=== PATIENT | male | born 1945 | race Caucasian/White ===

== ENCOUNTER → 2018-07-09 08:40 | Outpatient (CLI) | payer OTHER, SELFPAY ==
[2018-07-09 10:04] LABS: BUN Creatinine Ratio 16.4 (6-22); Blood Urea Nitrogen 18 mg/dL (9-20); Calcium 9.1 mg/dL (8.4-10.2); Carbon Dioxide 26 mmol/L (22-32); Chloride 102 mmol/L (98-107); Cholesterol 180 mg/dL (140-199); Estimated Glomerular Filt Rate > 60.0 mL/min (>60); Glucose 101 mg/dL (80-110); HDL Cholesterol 67 mg/dL (40-60); HEMOLYSIS < 15 (0-50); LDL Cholesterol Calculated 90 mg/dL (<100); Potassium 4.3 mmol/L (3.4-5.1); Sodium 141 mmol/L (137-145); Triglycerides 115 mg/dL (35-150)
[2018-07-09 10:18] LABS: Vitamin D 25 Hydroxy (D3) 112 ng/mL (30.0-100.0)
[2018-07-09 10:41] LABS: Prostate Specific Antigen < 0.064 ng/mL (0.10-4.00)
== END ==
PROVIDERS: PCP Family Medicine; Visit Provider Student in an Organized Health Care Education/Training Program
DX: E78.5 Hyperlipidemia, unspecified (principal); E55.9 Vitamin D deficiency, unspecified; Z85.46 Personal history of malignant neoplasm of prostate; I10 Essential (primary) hypertension
CPT/HCPCS: 36415; 80048; 80061; 82306; 84153

== ENCOUNTER → 2018-07-27 16:12 | Outpatient (CLI) | payer OTHER, SELFPAY ==
--- NOTE | 2018-07-27 16:14 | DI.US.S_ITS ---
PROCEDURE: US ABD AORTA ANEURYSM SCREEN INDICATIONS: AAA screen in male former smoker TECHNIQUE: Real time scanning was performed of the aorta and iliac arteries, with image documentation. COMPARISON: None. FINDINGS: Aorta: Proximal aortic diameter measures 1.9 cm. Mid-aorta measures 1.5 cm. Distal aortic diameter is 1.4 cm. Iliac arteries: Right common iliac artery measures 1.1 cm. Left common iliac artery measures 1.2 cm. IMPRESSION: No evidence of abdominal aortic aneurysm. Dictated by: Hayden Baez M.D. on 07/27/2018 at 17:04 Approved by: Hayden Baez M.D. on 07/27/2018 at 17:04
== END ==
PROVIDERS: PCP Student in an Organized Health Care Education/Training Program; Visit Provider Student in an Organized Health Care Education/Training Program
DX: Z13.6 Encounter for screening for cardiovascular disorders (principal); Z87.891 Personal history of nicotine dependence
CPT/HCPCS: 76706

== ENCOUNTER 2019-02-19 08:39 | Day surgery (SDC) | payer OTHER, SELFPAY ==
[2019-02-19] VITALS (7 sets, daily range): BP systolic 112–134; BP diastolic 61–85; PULSE 61–71; RESP 14–16; TEMP 36.3–36.4; O2SAT 94–96; BMI 24.4
--- NOTE | 2019-02-19 | PATH_ITS ---
[facility] Accession Number: [id number] . 01 Material submitted: . colon - COLON POLYP 60 CM . 02 Diagnosis: Colon, Polyp at 60 cm, Biopsy: Tubular adenoma. MRV/02/20/2019 . 02 Electronically signed: . Miladys Berumen MD, Pathologist NPI- [id number] . 01 Gross description: . COLON POLYP 60 CM: Received in formalin is 1 fragment(s) of murri[place], soft tissue measuring 0.3 x 0.3 x 0.3 cm which is entirely submitted and submitted entirely in 1 cassette(s) /DMC /DMC . 02 Pathologist provided ICD-10: D12.6 . 02 CPT . 584038 Performed at: 01 [facility] Located within [facility] [address] [id number] MD Segundo Higuera MD Phone: [phone] Performed at: 02 [facility] [place] [address] [place], [place] [id number] MD Miladys Berumen MD Phone: [phone]
[2019-02-19] MEDS: SODIUM CHLORIDE 0.9% 1,000 ML 200 ML IV (09:26)
--- NOTE | 2019-02-19 10:20 | PM.HP.1 ---
History of Present Illness Date Patient Seen: 02/19/19 Time Patient Seen: 10:20 Chief complaint: [id number] Narrative: The patient is a gentleman here for screening colonoscopy. No prior history of colon cancer. He has a history of colon polyps. 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 Grandfather No problems noted. Grandmother No problems noted. Mother Dementia Grandfather No problems noted. Grandmother No problems noted. Sister No problems noted. Social History household members: spouse Smoking Status: Former smoker Family & Social History Family History Father Heart failure Brother No problems noted. Grandfather No problems noted. Grandmother No problems noted. Mother Dementia Grandfather No problems noted. Grandmother No problems noted. Sister No problems noted. Social History: household members spouse Tobacco & Substance use: Smoking Status Former smoker Meds Home Medications Medication Instructions Recorded Confirmed Type COENZYME Q10/VITAMIN E (CO-Q-10 100 mg PO BEDTIME #0 sgl 05/02/13 02/19/19 History 200mg) VITAMIN D (Vitamin D3) 2,000 units PO SEEINSTR #0 07/12/17 02/19/19 History lovastatin 20 mg tablet 20 mg PO HS #90 tab 06/18/18 02/19/19 Rx sildenafil 50 mg tablet 50 mg PO ONCE #10 tab 07/03/18 02/19/19 Rx lisinopril 20 1 tab PO QAM #90 tab 09/10/18 02/19/19 Rx mg-hydrochlorothiazide 12.5 mg tablet Allergies Allergy/AdvReac Type Severity Reaction Status Date / Time No Known Drug Allergies Allergy Verified 02/19/19 09:10 Review of Systems Review of Systems All systems reviewed & are unremarkable except as noted in HPI and below Exam Vital Signs (past 8 hours): - 02/19/19 09:26 Temperature 97.5 F L Pulse Rate 71 Respiratory Rate 16 Blood Pressure 134/85 Pulse Oximetry 96 Oxygen Delivery Method Room Air Narrative Exam Narrative: Pleasant cooperative patient no apparent distress. Left eye the lower lids tags and there is inflammation and edema of the cornea inferiorly. This is chronic due to a injury. Lungs are clear to auscultation. No rales or rhonchi. Heart regular rate and rhythm no murmur gallop. Abdomen is soft nontender without mass. No obvious hernias. Patient is alert and oriented x3. Assessment & Plan Assessment & Plan narrative: The patient for a screening colonoscopy. I have discussed the procedure with them. Risks of bleeding, perforation which would necessitate major operation, failure to find remove all lesions, the potential tattoo were all discussed. All questions were answered. They wished to proceed.
--- NOTE | 2019-02-19 10:22 | PM.PREOP ---
Pre-operative Note Interval Note History & Physical reviewed/Exam performed by Physician: Yes Changes to H&P: No ASA Class (for procedural sedation): II
[2019-02-19] MEDS: fentaNYL 250 MCG/5 ML INJ IV (10:29)
[2019-02-19] MEDS: MIDAZOLAM 5 MG/5 ML VIAL IV (10:30)
[2019-02-19] MEDS: GLUCAGON,HUMAN RECOMBINANT 1 MG/ML VIAL IV (10:41)
[2019-02-19] MEDS: LACTATED RINGERS 1,000 ML 150 ML IV (10:43)
--- NOTE | 2019-02-19 10:45 | SUR.OPER ---
PATIENT TOLERATED WELL. GLUCAGON GIVEN FOR COLON SPASMS, VITAL SIGNS STABLE ,SEE STRIPS, SHORT PERIOD OF EXTERNAL ABDOMINAL PRESSURE USED, PATIENT REACTIVE TO ALL COMMANDS
--- NOTE | 2019-02-19 11:00 | PM.OP.ENDO ---
Operative Date/Time/Diagnoses Date of procedure: 02/19/19 Time of procedure: 11:00 Pre-op diagnosis: History of polyps. Last exam 5 years ago. Here for screening exam. Post-op diagnosis: same (One polyp at 60 cm. Extensive sigmoid diverticulosis. Scarring on small internal hemorrhoids.) Procedure & Clinicians Study performed: Colonoscopy with cold biopsy Same procedure as scheduled: Yes Indications: Screening. History of polyps. Surgeon: Christopher Peterson Procedure Notes SCOAP/Timeout: Performed Procedure in detail: The patient was placed in the left lateral decubitus position and underwent IV sedation directed by the surgeon consisting of fentanyl and Versed. Digital exam was remarkable for surgically absent prostate. The scope was inserted and advanced through the rectum into the sigmoid, descending, transverse, and ascending colon. The cecum was reached by applying pressure. On the way in patient was noted to have extensive sigmoid diverticulosis.. The cecum was reached identified by the ileocecal valve and the appendiceal opening. The scope was gradually brought out. One Polyp was found at 60 cm from the anal verge. It was biopsied and appeared to be completely removed. The scope ultimately was retroflexed in the rectum. The appearance was significant for scarring I what appeared to be small internal hemorrhoids.. The scope was removed and the patient tolerated the procedure well. Prep was good. Scope withdrawal time: 9min(excluding biopsy time) Sedation minutes: 24 Findings: diverticulosis (Sigmoid) and polyp (At 60 cm) Specimen(s): other (Polyp) Complications: none Recommendations: Colonscopy in 5 years Follow up: as needed Disposition: PACU
== END 2019-02-19 11:45 | disposition home or self-care (01) ==
LOC: ENDO 08:40
PROVIDERS: PCP Student in an Organized Health Care Education/Training Program; Visit Provider Specialist
PROC: 0DJD8ZZ Inspection of Lower Intestinal Tract, Via Natural or Artificial Opening Endoscopic (ICD-10-PCS; CPT 45378; principal; 2019-02-19 09:45)
DX: Z86.010 Personal history of colon polyps (principal); K57.30 Diverticulosis of large intestine without perforation or abscess without bleeding; D12.6 Benign neoplasm of colon, unspecified
CPT/HCPCS: 45380; 99152; J1610; J2250; J3010

== ENCOUNTER → 2019-07-03 12:49 | Outpatient (CLI) | payer OTHER, SELFPAY ==
[2019-07-03 13:22] LABS: Bacteria Urine None Seen; RBC Urine None Seen (0-5/HPF); WBC Urine None Seen (0-5/HPF)
[2019-07-03 13:36] LABS: Appearance Urine UA CLEAR; Bilirubin Urine UA NEGATIVE (NEGATIVE); Color Urine UA YELLOW; Glucose Urine UA NEGATIVE (Negative); Ketones Urine UA NEGATIVE (NEGATIVE); Leukocyte Esterase Urine UA NEGATIVE (NEGATIVE); Nitrite Urine UA NEGATIVE (Negative); Occult Blood Urine UA TRACE-LYSED (Negative); Protein Urine UA NEGATIVE (Negative); Specific Gravity Urine UA 1.015 (1.000-1.035); Urobilinogen Urine UA 0.2 E.U./dL (0.2); pH Urine UA 5.5 (4.5-8.0)
[2019-07-03 13:47] LABS: Culture Indicated Urine Cult Not Indicated; Urine Comments Microscopic Normal
[2019-07-03 14:01] LABS: Blood Urea Nitrogen 19 mg/dL (9-20); Calcium 9.7 mg/dL (8.4-10.2); Carbon Dioxide 28 mmol/L (22-32); Chloride 99 mmol/L (98-107); Estimated Glomerular Filt Rate > 60.0 mL/min (>60); Glucose 111 mg/dL (80-110); HEMOLYSIS < 15 (0-50); Potassium 4.4 mmol/L (3.4-5.1); Sodium 137 mmol/L (137-145)
[2019-07-03 14:37] LABS: Prostate Specific Antigen < 0.064 ng/mL (0.10-4.00)
== END ==
PROVIDERS: PCP Student in an Organized Health Care Education/Training Program; Visit Provider Student in an Organized Health Care Education/Training Program
DX: I10 Essential (primary) hypertension (principal); T45.2X1A Poisoning by vitamins, accidental (unintentional), initial encounter; Z85.46 Personal history of malignant neoplasm of prostate; R31.9 Hematuria, unspecified
CPT/HCPCS: 36415; 80048; 81001; 82306; 84153